=== PATIENT | female | born 1990 | race Caucasian/White ===

== ENCOUNTER 2021-03-07 07:38 | Inpatient (IN) ==
[2021-03-07] MEDS ORDERED: OXYTOCIN 30 UNITS/500 ML BAG IV PRN ×3 (07:53→22:39)
[2021-03-07] MEDS ORDERED: ceFAZolin 1000MG 1,000 MG/7.5 ML SYR IV PRN (08:30)
[2021-03-07 08:31] LABS: Hematocrit (blood only) 36.8 % (37-47); Hemoglobin 12.4 g/dL (12.0-16.0); Mean Corpuscular Hemoglobin 28.6 pg (25-34); Mean Corpuscular Hgb Conc 33.7 g/dL (32-36); Mean Corpuscular Volume 84.8 fL (80-100); Mean Platelet Volume 11.2 fL (7.4-10.4); Platelet Count 200 K/uL (130-400); RDW Coefficient of Variation 13.7 % (11.5-14.5); RDW Standard Deviation 41.7 fL (36.4-46.3); Red Blood Count 4.34 M/uL (4.2-5.4); White Blood Count 8.56 K/uL (4.8-10.8)
[2021-03-07] MEDS ORDERED: CALCIUM CARBONATE 500 MG CHEWABLE TAB PO PRN (08:47)
[2021-03-07] MEDS: LACTATED RINGER'S 1,000 ML IV PRN ×3 (09:03→17:07)
--- NOTE | 2021-03-07 09:03 | History & Physical Report ---
Date of Service March 07, 2021 Assessment & Plan (1) Post term : 30 y/o at 39 2/7 wga presenting for IOL VSS Fetus cat 1 Labor - will start w/ pit GBS+, PCN allergic. Prior delivery summary notes pt received ancef and tolerated, so will give ancef for prophylaxis Epidural PRN Admission and Anticipated Discharge Date Admission Date: March 07, 2021 History of Present Illness Chief Complaint: eIOL Primary Care Provider: Neo Casillas, 30 y/o at 39 2/7 wga w/ NANCY 5/3 by LMP 06/05 c/w 1st tri who presents for eIOL/hx macrosomia. 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 Hx: G1 2015 at 41 wks, 9lbs 13oz G2 current Menarche 14 Denies hx STIs Denies hx abnl pap, 09/2018 neg cytology Allergies Allergy/AdvReac Type Severity Reaction Status Date / Time Penicillins Allergy Intermediate SHORTNESS Verified 03/06/21 10:13 OF BREATH Sulfa (Sulfonamide Allergy Intermediate SHORTNESS Verified 03/06/21 10:13 Antibiotics) OF BREATH Home Medications Medication Instructions Recorded Confirmed Type prenat.vits,allyson,nod-yosl-waapg 1 tab PO DAILY 08/02/20 03/07/21 History breast pump #1 ea 12/19/20 03/06/21 Rx cholecalciferol (vitamin D3) PO 12/19/20 03/06/21 History Patient History Medical History (Updated 03/07/21 @ 09:01 by Susanne Batista MD) History of breast lump Post term Surgical History History of tonsillectomy History of tonsillectomy and adenoidectomy Social History Smoking Status: Never smoker Hx Alcohol Use: No Hx Substance Use: No Preferred Language: Salvadorean Communication Ability: Effective Beliefs That Will Affect Care: None marital status: marital status details: Gurpreet (30) [phone] Current Living Situation: Spouse Current Living Situation Comment: lives with spouse, and son, no pets. 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 Other Information That Helps Us Care for You: No Feels Safe at Home: Yes Safety Concerns: Feels Safe At This Time Physical Exam Constitutional: WD/WN, vitals as above Respiratory: normal respiratory effort; no respiratory distress and no labored breathing Psychiatric: A+Ox3, euthymic affect Genitourinary: OB Exam Abdomen: + vertex and + estimated weight (8-9lb) Manual OB Exam: + cervical dilation (2-3), + cervical effacement 50% and + station (-3) OB Exam Monitor Tracing: + external FHT monitor used, + external uterine monitor used (irreg) and + category I (135/mod/+accel/-decel) Results & Data ([facility]) Vital Signs (Past 12 Hours) Vital Signs Temp Pulse Resp BP 03/07/21 08:00 98.1 F 99 H 20 134/89 03/07/21 07:56 99 H 134/89 Laboratory Results OB Labs: Blood Type O Positive 08/08/20 Antibody Screen NEGATIVE 08/08/20 Hemoglobin 12.1 g/dL (12.0-16.0) 12/19/20 Hematocrit 36.5 % (37-47) L 12/19/20 Mean Corpuscular Volume 87.6 fL (80-100) 08/08/20 Platelet Count 294 K/uL (130-400) 08/08/20 Rubella IgG Antibody Immune (Immune) 08/08/20 Rapid Plasma Reagin Nonreactive (Nonreactive) 08/08/20 Hepatitis B Surface Antigen Neg (Neg) 08/08/20 HIV (1&2) Ab and P24 Ag, 4th Gener Neg (Neg) 08/08/20 Glucose 1 Hour 50 gm Load 130 mg/dl (70-130) 12/19/20 OB Optional Labs: Chlamydia trachomatis RNA NOT DETECTED (NOT DETECTED) 08/08/20 Neisseria gonorrhoeae RNA NOT DETECTED (NOT DETECTED) 08/08/20 Labs Reviewed: low risk panorama--[facility] cf/sma neg--ak declined afp--[facility] GBS+ COVID neg Diagnostic Findings Posterior placenta Coding Level of Care Code None Diagnoses Post term O48.0
[2021-03-07] MEDS ORDERED: ceFAZolin 2000MG 2,000 MG/15 ML SYR IV ONE (09:15)
--- NOTE | 2021-03-07 12:23 | Labor Progress Brief Note ---
Date of Service March 07, 2021 Subjective Just started feeling ctx 30 min ago Assessment & Plan (1) Post term : 30 y/o at 39 2/7 wga presenting for IOL VSS Fetus cat 1 Labor - pit at 9. Plan to recheck and arom as continues to get more uncomfortable GBS+, PCN allergic. Ancef for ppx, no issues Epidural PRN Admission and Anticipated Discharge Date Admission Date: March 07, 2021 Physical Exam Constitutional: WD/WN, vitals as above Respiratory: normal respiratory effort; no respiratory distress and no labored breathing Psychiatric: A+Ox3, euthymic affect Genitourinary: OB Exam Monitor Tracing: + external FHT monitor used, + external uterine monitor used (q4-5min) and + category I (125/mod/+accel/-decel) Results & Data ([facility]) Vital Signs (Past 12 Hours) Vital Signs Temp Pulse Resp BP 03/07/21 11:54 75 129/74 03/07/21 10:48 97.9 F 73 18 129/84 03/07/21 10:08 88 18 130/87 03/07/21 09:01 98 H 146/82 H 03/07/21 08:00 98.1 F 99 H 20 134/89 03/07/21 07:56 99 H 134/89 Coding Level of Care Code None Diagnoses Post term O48.0
--- NOTE | 2021-03-07 14:15 | Labor Progress Brief Note ---
Date of Service March 07, 2021 Subjective Ctx more noticeable Assessment & Plan (1) Post term : 30 y/o at 39 2/7 wga presenting for IOL VSS Fetus cat 1 Labor - pit at 11, now s/p arom. Continue augmentation GBS+, PCN allergic. Ancef for ppx, no issues Epidural PRN Admission and Anticipated Discharge Date Admission Date: March 07, 2021 Physical Exam Constitutional: WD/WN, vitals as above Respiratory: normal respiratory effort; no respiratory distress and no labored breathing Psychiatric: A+Ox3, euthymic affect Genitourinary: Manual OB Exam: + cervical dilation (3-4cm), + cervical effacement 60%, + station -2 and + amniotic fluid (AROM) clear OB Exam Monitor Tracing: + external FHT monitor used, + external uterine monitor used (q4-5min) and + category I (125/mod/+accel/-decel) Results & Data ([facility]) Vital Signs (Past 12 Hours) Vital Signs Temp Pulse Resp BP 03/07/21 14:03 97.9 F 16 03/07/21 14:00 86 136/90 03/07/21 12:58 103 H 16 135/89 03/07/21 11:54 75 129/74 03/07/21 10:48 97.9 F 73 18 129/84 03/07/21 10:08 88 18 130/87 03/07/21 09:01 98 H 146/82 H 03/07/21 08:00 98.1 F 99 H 20 134/89 03/07/21 07:56 99 H 134/89 Coding Level of Care Code None Diagnoses Post term O48.0
[2021-03-07] MEDS ORDERED: ePHEDrine sulfate 50 MG/ML AMP ONE (16:17)
[2021-03-07] MEDS ORDERED: BUPIVACAINE 0.25% 30 ML VIAL ONE (16:17)
[2021-03-07] MEDS ORDERED: fentaNYL citrate 100 MCG/2 ML VIAL ONE (16:18)
[2021-03-07] MEDS ORDERED: fentaNYL 2MCG/ML ROPIVACAINE 1.25MG/ML 100 ML BAG EPI ONE (16:18)
--- NOTE | 2021-03-07 17:11 | Anesthesiology Consultation ---
Date of Service March 07, 2021 Assessment & Plan Chart Review Chart Review: Acceptable Risk for Labor Epidural Consults Requested none History Height/Weight Height: 5 ft 6 in Weight: 85.729 kg Allergies Allergy/AdvReac Type Severity Reaction Status Date / Time Penicillins Allergy Intermediate SHORTNESS Verified 03/06/21 10:13 OF BREATH Sulfa (Sulfonamide Allergy Intermediate SHORTNESS Verified 03/06/21 10:13 Antibiotics) OF BREATH Medications Home Medications Medication Instructions Recorded Confirmed Last Taken prenat.vits,allyson,oyi-ysll-npdbd 1 tab PO DAILY 08/02/20 03/07/21 03/07/21 breast pump #1 ea 12/19/20 03/06/21 Unknown cholecalciferol (vitamin D3) PO 12/19/20 03/06/21 Unknown Active Medications Generic Name Dose Route Start Last Admin Trade Name Freq PRN Reason Stop Dose Admin Calcium Carbonate 1,500 mg 03/07/21 08:47 03/07/21 09:20 Calcium Carbonate 500 Mg Chewable Tab PO 04/06/21 08:46 1,500 mg Q4H PRN Administration Indigestion Oxytocin 30 units in 500 mls @ 11 mls/hr 03/07/21 07:53 03/07/21 14:00 Pitocin IV 03/09/21 07:52 0.66 units/hr .Q24H PRN 11 mls/hr Labor Induction/Augmentation Titration Protocol 0.66 UNITS/HR Lactated Ringer's 1,000 mls @ 125 mls/hr 03/07/21 07:53 03/07/21 17:07 Lr IV 03/09/21 07:52 125 mls/hr .Q8H PRN Administration L&D Protocol Protocol Past Medical History Medical History History of breast lump Post term Past Surgical History Surgical History History of tonsillectomy History of tonsillectomy and adenoidectomy Social History Smoking Status: Never smoker Hx Alcohol Use: No Hx Substance Use: No Physical Exam Vital Signs Last Vital Signs Temp 36.7 C 03/07/21 15:12 Pulse 80 03/07/21 17:09 Resp 16 03/07/21 16:51 BP 111/60 03/07/21 17:09 Pulse Ox 96 03/07/21 17:07 Testing Laboratory Results 03/07/21 08:19
[2021-03-07] MEDS ORDERED: fentaNYL 2MCG/ML ROPIVACAINE 1.25MG/ML 100 ML BAG EPI PRN (17:12)
[2021-03-07] MEDS ORDERED: ePHEDrine sulfate 50 MG/ML AMP IV PRN (17:12)
[2021-03-07] MEDS ORDERED: NALOXONE HCL 1 MG in SODIUM CHLORIDE 0.9% 1000ML 1,000 ML IV PRN (17:12)
[2021-03-07] MEDS ORDERED: NALOXONE HCL 0.4 MG/1 ML VIAL/CARP IV PRN (17:12)
[2021-03-07] MEDS ORDERED: diphenhydrAMINE 50 MG/ML VIAL IV PRN (17:12)
--- NOTE | 2021-03-07 19:41 | Labor Progress Brief Note ---
Date of Service March 07, 2021 Subjective Some pressure Assessment & Plan (1) Post term : 30 y/o at 39 2/7 wga presenting for IOL VSS Fetus cat 1 Labor - pit at 13, progressing well GBS+, PCN allergic. Ancef for ppx, no issues Epidural in place Admission and Anticipated Discharge Date Admission Date: March 07, 2021 Physical Exam Constitutional: WD/WN, vitals as above Respiratory: normal respiratory effort; no respiratory distress and no labored breathing Psychiatric: A+Ox3, euthymic affect Genitourinary: Manual OB Exam: + cervical dilation 8 cm, + cervical effacement 90% and + station 0 OB Exam Monitor Tracing: + external FHT monitor used, + external uterine monitor used (q3-5min) and + category I (125/mod/+accel/-decel) Results & Data ([facility]) Vital Signs (Past 12 Hours) Vital Signs Temp Pulse Resp BP Pulse Ox 03/07/21 19:34 85 96 03/07/21 19:29 84 98 03/07/21 19:27 81 123/75 03/07/21 19:24 80 96 03/07/21 19:19 90 95 03/07/21 19:18 97.5 F L 18 03/07/21 19:14 84 96 03/07/21 19:12 86 117/78 03/07/21 19:07 83 96 03/07/21 19:02 93 H 96 03/07/21 18:57 85 119/79 95 03/07/21 18:52 80 95 03/07/21 18:47 95 H 94 03/07/21 18:42 80 96 03/07/21 18:41 90 122/80 03/07/21 18:37 94 H 95 03/07/21 18:32 80 96 03/07/21 18:27 94 H 96 03/07/21 18:26 87 18 130/77 03/07/21 18:22 85 96 03/07/21 18:17 84 95 03/07/21 18:12 90 96 03/07/21 18:11 85 135/82 03/07/21 18:07 85 96 03/07/21 18:02 87 95 03/07/21 17:57 101 H 97 03/07/21 17:56 100 H 18 126/81 03/07/21 17:52 111 H 96 03/07/21 17:47 89 96 03/07/21 17:43 90 124/80 03/07/21 17:42 88 95 03/07/21 17:37 79 132/67 95 03/07/21 17:35 86 156/87 H 03/07/21 17:33 90 116/64 03/07/21 17:32 83 96 03/07/21 17:31 84 121/67 03/07/21 17:29 77 18 108/61 03/07/21 17:27 71 118/66 97 03/07/21 17:25 75 111/59 L 03/07/21 17:23 79 113/61 03/07/21 17:22 73 95 03/07/21 17:21 77 18 115/56 L 03/07/21 17:19 75 18 111/59 L 03/07/21 17:17 91 H 18 122/62 96 03/07/21 17:15 84 18 119/71 03/07/21 17:13 73 18 116/66 03/07/21 17:12 81 96 03/07/21 17:11 71 18 112/62 03/07/21 17:09 80 18 111/60 03/07/21 17:07 80 18 112/63 96 03/07/21 17:05 76 18 115/64 03/07/21 17:02 79 95 03/07/21 17:01 84 112/64 03/07/21 16:59 81 112/61 03/07/21 16:57 80 125/75 96 03/07/21 16:55 75 132/85 03/07/21 16:53 85 18 133/83 03/07/21 16:52 86 96 03/07/21 16:51 75 16 136/84 03/07/21 16:47 86 96 03/07/21 16:42 80 96 03/07/21 16:37 75 96 03/07/21 16:34 93 H 94 03/07/21 16:32 94 H 95 03/07/21 16:28 88 94 03/07/21 16:27 90 93 03/07/21 16:10 75 18 134/73 03/07/21 15:12 98.1 F 78 18 125/80 03/07/21 14:37 98.1 F 16 0428/21 14:03 97.9 F 16 03/07/21 14:00 86 136/90 03/07/21 12:58 103 H 16 135/89 03/07/21 11:54 75 129/74 03/07/21 10:48 97.9 F 73 18 129/84 03/07/21 10:08 88 18 130/87 03/07/21 09:01 98 H 146/82 H 03/07/21 08:00 98.1 F 99 H 20 134/89 03/07/21 07:56 99 H 134/89 Coding Level of Care Code None Diagnoses Post term O48.0
--- NOTE | 2021-03-07 22:29 | Delivery Summary ---
Vaginal Delivery Summary Date of Service March 07, 2021 Vaginal Delivery Summary and 2nd Degree LAC PREOPERATIVE DIAGNOSIS: 1. Single intrauterine at 39 2/7 wga 2. History of macrosomia 3. Elective induction of labor 4. GBS positive POSTOPERATIVE DIAGNOSIS: 1. Single intrauterine at 39 2/7 wga 2. History of macrosomia 3. Elective induction of labor 4. GBS positive 5. Delivered PROCEDURE: 1. Normal spontaneous vaginal delivery. SURGEON: Susanne Batista MD ANESTHESIA: Epidural. ESTIMATED BLOOD LOSS: 300 mL FLUIDS: Continuous LR. URINE OUTPUT: None. COMPLICATIONS: None. CONDITION: Stable. INDICATIONS: 30 y/o at 39 2/7 wga presented for induction of labor due to history of macrosomia. complicated by left EIF w/ normal cfDNA and GBS+. She was started on ancef for GBS+ status due to PCN allergy. She was started on pitocin and titrated up. She underwent artificial rupture of membranes and received an epidural for pain control. She then progressed to complete and desired to push. FINDINGS: A viable male infant with Apgars of 9 and 9 at 1 and 5 minutes respectively. SPECIMEN: Cord blood OPERATIVE REPORT: The patient progressed to 10 cm, 100% effaced and +2 station, pushed over intact perineum with anesthesia to deliver a viable male infant, Apgars as above. Head of delivered in NIALL position. No nuchal cord was present. Body and shoulders were delivered without difficulty. was delivered to maternal abdomen and nursing staff. Delayed cord clamping was performed for 60 seconds. Cord was clamped and cut. Cord blood was obtained. Placenta delivered spontaneously intact with 3-vessel cord. IV oxytocin and fundal massage were given for excellent hemostasis. Vagina, cervix, perineum, and placenta were inspected. A second degree laceration was noted and repaired in the usual fashion. Sponge and needle counts correct x2. No sponges were left behind. Mother and stable in immediate period. [facility] Vaginal Delivery Charge Vaginal Delivery Codes: 28929 global code for the antepartum, delivery, and post- Delivery Type Details: and 2nd Degree LAC
[2021-03-07] MEDS ORDERED: DIPHTHERIA/TETANUS/PERTUSSIS 0.5 ML SYR/VIAL IM ONE (22:39)
[2021-03-07] MEDS ORDERED: bisacodyL 10 MG SUPP PR PRN (22:39)
[2021-03-07] MEDS ORDERED: ACETAMINOPHEN 325 MG TAB PO PRN (22:39)
[2021-03-07] MEDS ORDERED: SUPERCREAM 0.870% 15 GM JAR EXT PRN (22:39)
[2021-03-07] MEDS ORDERED: BENZOCAINE 20% AER SPR 82.5 GM CAN EXT PRN (22:39)
[2021-03-07] MEDS ORDERED: HYDROCORTISONE ACETATE 25 MG SUPP PR PRN (22:39)
[2021-03-07] MEDS: IBUPROFEN 600 MG TAB PO PRN (23:56)
--- NOTE | 2021-03-08 06:28 | Obstetrical Progress Note ---
Date of Service <Stephon Clark MD - Last Filed: 03/08/21 07:32> March 08, 2021 Assessment & Plan <Stephon Clark MD - Last Filed: 03/08/21 07:32> (1) Encounter for supervision of normal in multigravida, antepartum: Jina Wharton is a 30yo female on PPD#1 following IOL at 39+2wga. * Patient feels well today; eating well, voiding well, ambulating well * Pain well-controlled with ibuprofen 600mg q4h prn * PNL: Rh pos, RI, GBS pos, COVID neg * Routine care: OOB, ambulation, diet progression as tolerated * After discharge, will have six-week follow-up with Dr. Batista Subjective <Stephon Clark MD - Last Filed: 03/08/21 07:32> Jina Wharton is a 30yo female on PPD#1 following IOL at 39+2wga. This morning she reports feeling well overall. Reports mild crampy abdominal pain well-managed on analgesics. Tolerating PO intake without nausea or vomiting. Patient has been able to ambulate without lightheadedness or dizziness. Voiding well without difficulty. Lochia continues, though with some improvement this morning. Currently . Review of Systems Denies fever, chills, CP, SOB, cough, breast pain, dysuria, leg pain, leg swelling, headache, and changes in vision. Physical Exam <Stephon Clark MD - Last Filed: 03/08/21 07:32> General: alert, oriented, no acute distress Cardiac: regular rate and rhythm, no murmurs appreciated Respiratory: lungs clear to auscultation bilaterally a/p, no wheezes/rales/rhonchi, no increased work of breathing, symmetrical chest rise, no respiratory distress Abdomen: soft, minimally tender, nondistended, bowel sounds present Uterus: uterine fundus firm, palpable at umbilicus Lower extremities: no lower extremity edema or swelling, no deep calf pain, Yee's negative bilaterally Results & Data ([facility]) <Stephon Clark MD - Last Filed: 03/08/21 07:32> Vital Signs (Past 12 Hours) Vital Signs Temp Pulse Pulse Resp BP BP Pulse Ox 03/08/21 03:30 36.2 C L 80 18 126/76 03/07/21 23:50 36.5 C 87 18 144/79 H 95 03/07/21 23:24 105 H 130/76 03/07/21 23:15 36.9 C 18 03/07/21 23:10 90 130/73 03/07/21 22:56 84 119/85 03/07/21 22:55 18 03/07/21 22:40 76 137/78 03/07/21 22:25 76 18 137/78 03/07/21 22:10 76 18 137/78 03/07/21 21:55 93 H 18 131/83 03/07/21 21:40 105 H 18 129/59 L 03/07/21 21:25 37.1 C 173 H 18 139/76 03/07/21 21:20 91 H 95 03/07/21 21:15 99 H 95 03/07/21 21:11 101 H 145/76 H 03/07/21 21:10 96 H 96 03/07/21 21:05 99 H 94 03/07/21 21:00 107 H 95 03/07/21 20:57 20 03/07/21 20:55 116 H 96 03/07/21 20:53 116 H 86 L 03/07/21 20:49 104 H 96 03/07/21 20:46 90 88 L 03/07/21 20:45 18 03/07/21 20:44 102 H 98 03/07/21 20:41 93 H 129/85 03/07/21 20:39 91 H 97 03/07/21 20:34 90 96 03/07/21 20:30 18 03/07/21 20:29 91 H 94 03/07/21 20:27 83 130/82 03/07/21 20:24 84 96 03/07/21 20:19 107 H 95 03/07/21 20:14 89 96 03/07/21 20:12 96 H 138/70 03/07/21 20:09 94 H 97 03/07/21 20:04 81 95 03/07/21 20:00 18 03/07/21 19:59 91 H 97 03/07/21 19:58 90 123/79 03/07/21 19:54 102 H 98 03/07/21 19:49 94 H 96 03/07/21 19:44 85 96 03/07/21 19:42 92 H 134/91 03/07/21 19:39 95 H 96 03/07/21 19:34 85 96 03/07/21 19:30 18 03/07/21 19:29 84 98 03/07/21 19:27 81 123/75 03/07/21 19:24 80 96 03/07/21 19:19 90 95 03/07/21 19:18 36.4 C L 18 03/07/21 19:14 84 96 03/07/21 19:12 86 117/78 03/07/21 19:07 83 96 03/07/21 19:05 36.5 C 18 03/07/21 19:02 93 H 96 03/07/21 18:57 85 119/79 95 03/07/21 18:52 80 95 03/07/21 18:47 95 H 94 03/07/21 18:42 80 96 03/07/21 18:41 90 122/80 03/07/21 18:37 94 H 95 03/07/21 18:32 80 96 03/07/21 18:27 94 H 96 <Susanne Batista MD - Last Filed: 03/08/21 07:44> Co-Signing Physician Notes Resident Physician Supervision Note: I interviewed and examined the patient. Discussed with Dr. Clakr and agree with findings and plan as documented in the note. Any exceptions or clarifications are listed here: PP1, doing well, meeting milestones. VSS, exam benign and wnl. Plan for d/c tomorrow as 24 hours will be late tonight. Pt had issues w/ breast yeast infection after last delivery, requested Rx sent for if she has issues again at home and sent Documented By: Susanne Batista MD Resident Activity Tracking <Stephon Clark MD - Last Filed: 03/08/21 07:32> Resident Involvement: Resident Care Provided Care Provided: OB Delivery
[2021-03-08 06:30] LABS: Hematocrit (blood only) 32.4 % (37-47); Hemoglobin 10.9 g/dL (12.0-16.0); Mean Corpuscular Hemoglobin 28.6 pg (25-34); Mean Corpuscular Hgb Conc 33.6 g/dL (32-36); Mean Platelet Volume 11.1 fL (7.4-10.4); Platelet Count 190 K/uL (130-400); RDW Coefficient of Variation 13.7 % (11.5-14.5); RDW Standard Deviation 42.3 fL (36.4-46.3); Red Blood Count 3.81 M/uL (4.2-5.4); White Blood Count 10.74 K/uL (4.8-10.8)
[2021-03-08] MEDS: DOCUSATE SODIUM 100 MG CAP PO SCH ×2 (08:16→20:35)
[2021-03-08] MEDS: PRENATAL VITAMIN 1 TAB PO SCH (08:16)
[2021-03-08] MEDS: IBUPROFEN 600 MG TAB PO PRN ×4 (08:16→20:35)
--- NOTE | 2021-03-08 08:32 | Anesthesia Procedure Note ---
Date of Service March 08, 2021 Anesthesia Post Epidural Note Vital Signs Vital Signs: Temp Pulse Resp BP Pulse Ox 36.5 C 77 18 145/93 H 96 03/08/21 07:36 03/08/21 07:36 03/08/21 07:36 03/08/21 07:36 03/08/21 07:36 Pain Intensity Bilateral Abdomen: Pain Intensity: 2 Notes Mental Status: alert / awake / arousable and participated in evaluation Nausea / Vomiting: adequately controlled Pain: adequately controlled Airway Patency, RR, SpO2: stable & adequate BP & HR: stable & adequate Hydration State: stable & adequate Neuraxial Anesthesia: was administered and sensory block is resolving Anesthetic Complications: no major complications apparent and Pt Satisfied with anesthetic care Epidural: Removed without complications and With tip intact
[2021-03-08] MEDS ORDERED: bisacodyL 5 MG TABEC PO SCH (20:00)
[2021-03-09] MEDS: IBUPROFEN 600 MG TAB PO PRN ×2 (00:34→08:42)
--- NOTE | 2021-03-09 06:25 | Obstetrical Progress Note ---
Date of Service <Stephon Clark MD - Last Filed: 03/09/21 07:03> March 09, 2021 Assessment & Plan <Stephon Clark MD - Last Filed: 03/09/21 07:03> (1) Encounter for supervision of normal in multigravida, antepartum: Jina Wharton is a 30yo female on PPD#2 following IOL at 39+2wga. * Patient feels well today; eating well, voiding well, ambulating well * Pain well-controlled with ibuprofen 600mg q4h prn * PNL: Rh pos, RI, GBS pos, COVID neg * Routine care: OOB, ambulation, diet progression as tolerated * After discharge, will have six-week follow-up with Dr. Batista Subjective <Stephon Clark MD - Last Filed: 03/09/21 07:03> Jina Wharton is a 30yo female on PPD#2 following IOL at 39+2wga. This morning she reports feeling well overall. Reports mild crampy abdominal pain well-managed on analgesics, improved from yesterday. Tolerating PO intake without nausea or vomiting. Patient has been able to ambulate without lightheadedness or dizziness. Voiding well without difficulty. Lochia continues, though with some improvement this morning. Currently . Denies fever, chills, CP, SOB, cough, breast pain, dysuria, leg pain, leg swelling, headache, and changes in vision. Physical Exam <Stephon Clark MD - Last Filed: 03/09/21 07:03> General: alert, oriented, no acute distress Cardiac: regular rate and rhythm, no murmurs appreciated Respiratory: lungs clear to auscultation bilaterally a/p, no wheezes/rales/rhonchi, no increased work of breathing, symmetrical chest rise, no respiratory distress Abdomen: soft, minimally tender, nondistended, bowel sounds present Uterus: uterine fundus firm, palpable at umbilicus Lower extremities: no lower extremity edema or swelling, no deep calf pain, Yee's negative bilaterally Results & Data ([facility]) <Stephon Clark MD - Last Filed: 03/09/21 07:03> Vital Signs (Past 12 Hours) Vital Signs Temp Pulse Resp BP Pulse Ox 04/30/21 01:45 128/79 03/09/21 00:25 36.7 C 89 18 131/90 03/08/21 19:40 36.4 C L 73 18 143/87 H 96 <Rukhsana Angelo MD - Last Filed: 03/09/21 07:13> Co-Signing Physician Notes Resident Physician Supervision Note: I interviewed and examined the patient. Discussed with Dr. Virgen and agree with findings and plan as documented in the note. Any exceptions or clarifications are listed here: [ ] Documented By: Rukhsana Angelo MD, FACOG Resident Activity Tracking <Stephon Clark MD - Last Filed: 03/09/21 07:03> Resident Involvement: Resident Care Provided Care Provided: OB Delivery
[2021-03-09] MEDS: PRENATAL VITAMIN 1 TAB PO SCH (08:42)
[2021-03-09] MEDS: DOCUSATE SODIUM 100 MG CAP PO SCH (08:42)
== END 2021-03-09 11:20 | disposition home or self-care (01) | DRG 807 ==
LOC: 4S1 07:38 → 4S2 23:40